=== PATIENT | female | born 1935 | race African-American/Black ===

== ENCOUNTER 2019-04-29 15:48 | Inpatient (IN) ==
--- NOTE | 2019-04-29 17:33 | Diag Imaging Result Doc PS360 ---
EXAM: CT HEAD W/O CONTRAST 04/29/2019 HISTORY: AMS TECHNIQUE: This exam was performed using automated exposure control, adjustment of mA or kV according to patient size, and/or use of iterative reconstruction technique. COMMENT: There are calcifications in the vertebral and internal carotid arteries bilaterally. There is mild generalized cerebral atrophy. There is encephalomalacia in the right parietal cortex. There is no evidence of bleed or abnormal extra-axial fluid collection. No previous studies are available for comparison. 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 No evidence of acute disease. Electronically signed by Jamey Austin 04/29/2019 5:30 PM
--- NOTE | 2019-04-29 17:41 | Diag Imaging Result Doc PS360 ---
EXAM: CHEST-1 VIEW 04/29/2019 HISTORY: SOB, pne? TECHNIQUE: AP chest at 1730 COMMENT: The heart size appears slightly enlarged. The inspiration is suboptimal however. There are apparent atelectatic changes in both lower lobes which were not present on 12/13/2014. IMPRESSION: Bibasilar atelectasis versus pneumonia. Electronically signed by Jamey Austin 04/29/2019 5:38 PM
[2019-04-29] MEDS ORDERED: ROCEPHIN 1 GM in NS 50 ML IV ONE (18:05)
--- NOTE | 2019-04-29 18:47 | PROVIDER DOCUMENTATION ---
HPI-General Adult - General Stated Complaint: SOB Time Seen by Provider: 04/29/19 16:18 Source: patient Allergies/Adverse Reactions: Patient Allergies Allergy/AdvReac Type Severity Reaction Status Date / Time No Known Allergies Allergy Verified 10/19/15 16:21 Home Medications: Home Medication List Medication Instructions Recorded Confirmed Last Taken Type Hydrocodone/Acetaminophen [[place] 1 each PO Q4H PRN 05/07/14 10/19/15 10/18/15 20:00 History 7.5-325 Tablet] Amlodipine Besylate [Norvasc] 5 mg PO DAILY 10/19/15 10/19/15 10/19/15 09:00 History Aspirin [Aspirin EC] 81 mg PO DAILY 10/19/15 10/19/15 10/19/15 12:00 History Atenolol 100 mg PO DAILY 10/19/15 10/19/15 10/19/15 12:00 History Clopidogrel Bisulfate [Plavix] 75 mg PO DAILY 10/19/15 10/19/15 10/19/15 09:00 History Docusate Sodium [Colace] 100 mg PO BID PRN PRN 10/19/15 10/19/15 Unknown History Gabapentin 400 mg PO PRN PRN 10/19/15 10/19/15 Unknown History Glimepiride 2 mg PO DAILY 10/19/15 10/19/15 10/19/15 06:00 History Insulin Glargine [Lantus] 10 unit SUBQ QA 10/19/15 10/19/15 10/19/15 09:00 History Insulin Glargine [Lantus] 12 unit SUBQ QHS 10/19/15 10/19/15 10/18/15 21:00 History LISINOpril [Prinivil] 10 mg PO DAILY 10/19/15 10/19/15 10/19/15 09:00 History LISINOpril [Prinivil] 20 mg PO QHS 10/19/15 10/19/15 10/18/15 21:00 History Metformin HCl [Metformin HCl ER] 500 mg PO BID 10/19/15 10/19/15 10/19/15 09:00 History Ranitidine HCl [Zantac] 150 mg PO BID 10/19/15 10/19/15 10/19/15 09:00 History Simvastatin [Zocor] 20 mg PO QHS 10/19/15 10/19/15 10/18/15 21:00 History - History of Present Illness -Gen Adult Nature of Presenting Problems: Patient is an 84 yobf who arrived from [facility] via EMS who report that pt was sent due to increasing SOB and AMS. Daughter states pt has been on abx for pneumonia x 4 days and cough/SOB have not improved and pt has become increasingly confused. Also states pt has had a yeast infection "for a while now" and has been complaining of left leg pain today. Review of Systems - Adult - REVIEW OF SYSTEMS - ADULT Constitutional: reports: no symptoms reported Eyes: reports: no symptoms reported Ears, Nose, Mouth & Throat: reports: no symptoms reported Cardiovascular: reports: no symptoms reported. denies: syncope Respiratory: reports: see HPI Gastrointestinal: reports: no symptoms reported Genitourinary: reports: see HPI Musculoskeletal: reports: see HPI (leg pain) Integumentary: reports: no symptoms reported Neurological: reports: see HPI (confusion) Psychiatric: reports: no symptoms reported Endocrine: reports: no symptoms reported Hematologic/Lymphatic: reports: no symptoms reported Allergic/Immunologic: reports: no symptoms reported All Other Systems: Reviewed and Negative Past History - Adult - PAST MEDICAL HISTORY-ADULT Review of Records: reports: Old Records Reviewed, Nursing Assessment Review, Medications Reviewed, Social history reviewed & non-contributory. Major Childhood Illnesses: reports: denies history Cardiovascular: reports: HTN, hyperlipidemia Respiratory: reports: denies history Gastrointestinal: reports: GERD Genitourinary: reports: kidney disease Musculoskeletal: reports: denies history Neurological: reports: CVA Endocrine/Immune: reports: Diabetes Other Conditions: reports: cataract/glaucoma - PRIOR SURGERIES/PROCEDURES Surgical/Procedure History: reports: hysterectomy - IMMUNIZATION STATUS Childhood Immunizations: See Nurse Assessment Flu Vaccine: See Nurse Assessment - FAMILY HISTORY Family History: reviewed, not pertinent - SOCIAL HISTORY Smoking: non-smoker Physical Exam-General - PHYSICAL EXAM-ADULT Initial Vital Signs Reviewed: Yes - CONSTITUTIONAL General Appearance: alert, no apparent distress. negative: lethargic, slow to respond - EYES Eyes: PERRL/EOMI, pink conjunctivae - HEAD, EARS, NOSE, MOUTH & THROAT HENMT: normocephalic/atraumatic, moist mucous membranes - NECK Neck: full range of motion, supple, normal inspection - RESPIRATORY Respiratory: no respiratory distress, rhonchi (diffuse expiratory) - CARDIOVASCULAR Cardiovascular: normal peripheral pulses, regular rate, rhythm, no edema, no gallop, no murmur - GASTROINTESTINAL (ABDOMEN) Abdominal Exam: normal bowel sounds, non tender, soft - MUSCULOSKELETAL Back Exam: normal inspection Extremity: normal inspection, no pedal edema, other (no deformity or swelling noted to left lower leg. No apparent injury,). negative: deformity, erythema - SKIN Integumentary: normal color, warm/dry. negative: cyanosis, diaphoresis, jaund ice, mottled, pallor - NEUROLOGIC Neurologic: grossly normal - PSYCHIATRIC Psych/Mental Status: normal mood/affect, other (pt alert to self and place) Progress - PLAN OF CARE/RESULTS Progress/Plan/Lab Results: Vital Signs - 8 hr 04/29/19 16:57 Temperature 98.2 F Pulse Rate 72 Respiratory Rate 15 Blood Pressure 106/69 O2 Sat by Pulse Oximetry 99 Orders Category Date Time Status Cardiac Monitoring DIRECTED Care 04/29/19 16:35 Active Nursing- Obtain EKG ONCE Care 04/29/19 16:35 Active Saline Loc NOW Care 04/29/19 16:35 Active CHEST-1 VIEW [RAD] Stat Exams 04/29/19 16:[address] HEAD W/O CONTRAST [CT] Stat Exams 04/29/19 16:35 Completed BLOOD CULTURE [BLDCUL] Stat Lab 04/29/19 16:35 Uncollected CBC WITH DIFF [HEME] Stat Lab 04/29/19 16:35 Ordered COMPREHENSIVE METABOLIC PANEL [CHEM] Stat Lab 04/29/19 16:35 Uncollected PRO B-NATRIURETIC PEPTIDE Stat Lab 04/29/19 16:35 Uncollected PROTIME WITH INR [COAG] Stat Lab 04/29/19 16:35 Uncollected PTT [COAG] Stat Lab 04/29/19 16:35 Uncollected TROPONIN T Stat Lab 04/29/19 16:35 Ordered UA NIMS W/REFLEX CULT [URINALYSIS] Stat Lab 04/29/19 16:38 Uncollected CefTRIAXONE [Rocephin] 1 gm Med 04/29/19 18:05 Discontinued 0.9% Sodium Chloride Inj [Ns] 50 ml IV NOW EKG [EKG] Stat Ther 04/29/19 16:35 Ordered Result Diagrams: 04/29/19 19:29 04/29/19 19:29 - REASSESSMENT Reassessment #1 Time Reassessed: 20:10 Status: other (Anemia and renal function stable as compared to prior results.) Reassessment #2 Time Reassessed: 21:50 Status: other (Attempting to contact Dr. Rubio who is unavailable at this time. digital music instructor states md is aware of impending admit.) - EKG 1 Time of EKG reading by physician:: 19:43 EKG Read and Signed by:: Gal Pride EKG Interpretation (*Must complete 3 of following elements*): Abnormal Rate: 88 Rhythm: SR with frequent PVCs ST Wave: normal - XRAY 1 XRAY Study: Chest ([facility] - [address] [facility] [address] [address] [facility] - [address] [place] [address] Department of Imaging Patient: GOLD DOADM Date: 04/29/19#: [id number] : 1935DM Status: PRE ERAcct#: [id number] Age/Sex: 84/FRoom/Bed: Loc: ED Ordering Physician: Marian Arnold Family Physician: Reason for Procedure: SOB, pne? Signed EXAM: CHEST-1 VIEW 04/29/2019 HISTORY: SOB, pne? TECHNIQUE: AP chest at 1730 COMMENT: The heart size appears slightly enlarged. The inspiration is suboptimal however. There are apparent atelectatic changes in both lower lobes which were not present on 12/13/2014. IMPRESSION: Bibasilar atelectasis versus pneumonia. Electronically signed by Jamey Austin 04/29/2019 5:38 PM 04/29/19 [id number] Interpreting Physician: Jamey Austin MD Dictated Date/Time: 04/29/19 1738 cc: Marian Arnold;) - CT/MRI 1 CT Study: Head ([facility] - [address] , [address], [place] [address] [facility] - [address] [place] [address] Department of Imaging Patient: GOLD DOADM Date: 04/19 09/06#: [id number] : 1935DM Status: PRE ERAcct#: [id number] Age/Sex: 84/FRoom/Bed: Loc: ED Ordering Physician: Marian Arnold Family Physician: Reason for Procedure: AMS ____ Signed EXAM: CT HEAD W/O CONTRAST 04/29/2019 HISTORY: AMS TECHNIQUE: This exam was performed using automated exposure control, adjustment of mA or kV according to patient size, and/or use of iterative reconstruction technique. COMMENT: There are calcifications in the vertebral and internal carotid arteries bilaterally. There is mild generalized cerebral atrophy. There is encephalomalacia in the right parietal cortex. There is no evidence of bleed or abnormal extra-axial fluid collection. No previous studies are available for comparison. 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 No evidence of acute disease. Electronically signed by Jamey Austin 04/29/2019 5:30 PM 04/29/19 1730 Interpreting Physician: Jamey Austin MD Dictated Date/Time: 04/29/19 1729 cc: Marian Arnold;) Departure - Departure Date of Disposition Decision: 04/29/19 Time of Disposition Decision: 20:23 DIAGNOSIS: Shortness of breath Pneumonia Qualifiers: Pneumonia type: due to unspecified organism Laterality: unspecified laterality Lung location: unspecified part of lung Qualified Code(s): J18.9 - Pneumonia, unspecified organism Altered mental status Qualifiers: Altered mental status type: unspecified Qualified Code(s): R41.82 - Altered mental status, unspecified Disposition: ADMITTED INPATIENT 09 Certified Medical Emergency: Emergent Condition: Stable Referrals and Follow-Ups: Oswaldo Dotson MD [Primary Care Provider] - - Critical Care Note This patient required my direct & personal management of CC.: No Attestation - Physician/ SÁNCHEZ Attestation Patient care was provided by Advanced Practice Provider:: Yes Advanced Practice Provider:: Marian Arnold Advanced Practice Provider documentation review:: The Mid-level provider documentation, treatment plan and medical decision making was reviewed by the physician who agrees with all treatment and medical decision making by the MLP. The physician spent face to face time with patient:: No Advanced Practice Provider documentation review:: Supervising physician onsite and consulted in the evaluation and care of this patient. The physician did not have a face to face encounter with the patient.
[2019-04-29 20:01] LABS: BASO# 0.03 X1000 (0.0-0.2); BASO% 0.3 % (0.0-0.8); EOS# 0.24 X1000 (0.0-0.7); EOS% 2.4 % (0.0-10.0); HEMATOCRIT 29.3 % (37.0-47.0); HEMOGLOBIN 9.5 g/dL (12.0-16.0); IMM GRAN# 0.02 X1000 (0.0-0.04); IMM GRAN% 0.2 % (0.0-0.5); LYMPH# 1.49 X1000 (1.2-3.4); LYMPH% 14.9 % (20.5-51.1); MCH 27.5 PG (27-31); MCHC 32.4 g/dL (33-37); MCV 84.7 FL (81-99); MONO# 0.55 X1000 (0.11-0.59); MONO% 5.5 % (1.7-9.3); MPV 9.8 FL (7.4-10.4); NEUT# 7.65 X1000 (1.4-6.5); NEUT% 76.7 % (42.2-75.2); PLT 334 X1000 (130-400); RBC 3.46 XMIL (4.2-5.4); RDW 16.9 % (11.5-14.5); WBC 9.98 X1000 (4.8-10.8)
[2019-04-29 20:04] LABS: INR 1.92; PROTIME 22.4 Seconds (11.0-16.0)
[2019-04-29 20:05] LABS: PTT 45.9 Seconds (22.3-41.8)
[2019-04-29 20:20] LABS: AGAP 16; ALB/GLOB RATIO 0.9; ALBUMIN 3.3 g/dL (3.5-5.0); ALKALINE PHOSPHATASE 46 U/L (32-104); BUN 31 mg/dL (8-22); CALCIUM 9.8 mg/dL (8.8-10.2); CHLORIDE 97 mmol/L (98-107); COSMO 280; CREATININE 1.2 mg/dL (0.5-0.9); ESTIMATED GFR 52; GLUCOSE 160 mg/dL (70-104); GOT 12 U/L (10-30); GPT 7 U/L (10-36); POTASSIUM 4.5 mmol/L (3.5-5.1); SODIUM 135 mmol/L (136-145); TCO2 22 mmol/L (25-35); TOTAL BILIRUBIN < 0.15 mg/dL (0.20-1.00); TOTAL PROTEIN 6.8 g/dL (6.3-8.3)
[2019-04-29] MEDS ORDERED: DUONEB (A & A) INH ONE (20:24)
[2019-04-29] MEDS ORDERED: ROCEPHIN ONE (23:07)
[2019-04-29] MEDS ORDERED: NS 50 ML ONE (23:07)
[2019-04-29] MEDS: MAXIPIME 1 GM in NS 50 ML IV SCH (23:15)
--- NOTE | 2019-04-30 | EKG Report ---
Test Performed on : 04/29/2019 7:42:31 PM Test Reason : SOB, AMS Blood Pressure : / mmHG Vent. Rate : 088 BPM Atrial Rate : 088 BPM P-R Int : 172 ms QRS Dur : 062 ms QT Int : 342 ms P-R-T Axes : 046 -02 032 degrees QTc Int : 413 ms Sinus rhythm. with frequent premature ventricular complexes. and fusion complexes Otherwise normal ECG No previous ECGs available Unconfirmed Result
[2019-04-30] MEDS: ZYVOX 600 MG/D5W 600 MG/300 ML IVPB IV SCH ×2 (00:02→13:15)
[2019-04-30 01:04] LABS: URINE SOURCE CLEAN CATCH
[2019-04-30 01:08] LABS: BILIRUBIN URINE NEGATIVE (NEGATIVE); BLOOD URINE NEGATIVE (NEGATIVE); COLOR STRAW; GLUCOSE URINE NEGATIVE (NEGATIVE); KETONE URINE NEGATIVE (NEGATIVE); LEUKOCYTES URINE MODERATE (NEGATIVE); NITRITE URINE NEGATIVE (NEGATIVE); PROTEIN URINE NEGATIVE (NEGATIVE); SP GRAVITY URINE 1.011; TURBIDITY URINE CLEAR (CLEAR); UROBILINOGEN URINE NORMAL (NORMAL)
[2019-04-30 01:10] LABS: UR EPITHELIAL CELLS <10 /HPF (<10); URINE BACTERIA NEGATIVE /HPF; URINE RBC <10 /HPF (<10)
[2019-04-30 01:21] LABS: URINE CASTS NONE SEEN; URINE CRYSTALS NONE SEEN; URINE SMALL ROUND CELLS NONE SEEN; URINE YEAST PRESENT
[2019-04-30] MEDS ORDERED: TYLENOL PO PRN (06:47)
[2019-04-30] MEDS ORDERED: ZOFRAN IV PRN (06:47)
[2019-04-30 07:03] LABS: BASO# 0.02 X1000 (0.0-0.2); BASO% 0.2 % (0.0-0.8); EOS# 0.21 X1000 (0.0-0.7); EOS% 2.5 % (0.0-10.0); HEMOGLOBIN 9.1 g/dL (12.0-16.0); IMM GRAN# 0.02 X1000 (0.0-0.04); IMM GRAN% 0.2 % (0.0-0.5); LYMPH# 1.34 X1000 (1.2-3.4); LYMPH% 15.6 % (20.5-51.1); MCH 27.3 PG (27-31); MCHC 32.5 g/dL (33-37); MCV 84.1 FL (81-99); MONO# 0.53 X1000 (0.11-0.59); MONO% 6.2 % (1.7-9.3); MPV 9.7 FL (7.4-10.4); NEUT# 6.45 X1000 (1.4-6.5); NEUT% 75.3 % (42.2-75.2); PLT 323 X1000 (130-400); RBC 3.33 XMIL (4.2-5.4); RDW 16.8 % (11.5-14.5); WBC 8.57 X1000 (4.8-10.8)
[2019-04-30] MEDS ORDERED: NORCO-5 PO PRN (07:04)
[2019-04-30 07:17] LABS: AGAP 10; ALBUMIN 3.2 g/dL (3.5-5.0); ALKALINE PHOSPHATASE 41 U/L (32-104); BUN 27 mg/dL (8-22); CALCIUM 9.4 mg/dL (8.8-10.2); CHLORIDE 98 mmol/L (98-107); COSMO 272; ESTIMATED GFR > 60; GLUCOSE 146 mg/dL (70-104); GOT 14 U/L (10-30); GPT 7 U/L (10-36); POTASSIUM 4.1 mmol/L (3.5-5.1); SODIUM 132 mmol/L (136-145); TCO2 24 mmol/L (25-35); TOTAL BILIRUBIN < 0.15 mg/dL (0.20-1.00); TOTAL PROTEIN 6.5 g/dL (6.3-8.3)
[2019-04-30] MEDS ORDERED: TESSALON PO PRN (07:25)
[2019-04-30 07:56] LABS: HEMOGLOBIN A1C 7.8 % (4.8-6.0)
--- NOTE | 2019-04-30 08:24 | EKG Report ---
Test Performed on : 04/30/2019 08:10:37 AM Test Reason : SOB, Frequent PVCs Blood Pressure : / mmHG Vent. Rate : 080 BPM Atrial Rate : 080 BPM P-R Int : 174 ms QRS Dur : 066 ms QT Int : 360 ms P-R-T Axes : 055 004 044 degrees QTc Int : 415 ms Sinus rhythm. with frequent premature ventricular complexes. Otherwise normal ECG When compared with ECG of 29-APR-2019 19:42, (Unconfirmed) fusion complexes are no longer present Confirmed by Sylvie SÁNCHEZ, Jose Alfredo Michel ([id number]) on 04/30/2019 8:45:37 AM
[2019-04-30] MEDS: HUMULIN R SUBQ SCH ×4 (08:26→21:28)
[2019-04-30] MEDS: NORVASC PO SCH (10:01)
[2019-04-30] MEDS: DIFLUCAN PO SCH (10:01)
[2019-04-30] MEDS: LASIX PO SCH (10:01)
[2019-04-30] MEDS: XARELTO PO SCH (10:01)
[2019-04-30] MEDS: TENORMIN PO SCH (10:01)
[2019-04-30] MEDS: ZANTAC PO SCH ×2 (10:01→21:09)
[2019-04-30] MEDS: DUONEB (A & A) INH SCH ×4 (11:27→21:44)
[2019-04-30] MEDS: MAXIPIME 1 GM in NS 50 ML IV SCH ×2 (12:42→23:39)
--- NOTE | 2019-04-30 20:51 | Diag Imaging Result Doc PS360 ---
CT THORAX W/O CONTRAST - 04/30/2019 INDICATION: pna COMPARISON: Chest x-ray from 04/29/2019 FINDINGS: There is mild cardiomegaly. There is moderate calcification of the mitral valve annulus. There is scattered calcified vascular disease, including coronary artery disease. There is probably a small gallstone in the gallbladder. There are infiltrates in both lower lobes, right greater than left. There are moderate degenerative changes of the spine. No acute or suspicious bony lesion. IMPRESSION: 1. Cardiomegaly. 2. Bilateral lower lobe infiltrates/edema. 3. Small gallstone in the gallbladder. This exam was performed using automated exposure control, adjustment of mA or kV according to patient size, and/or use of iterative reconstruction technique Electronically signed by Pierre Thornton 04/30/2019 8:49 PM
[2019-04-30] MEDS ORDERED: MYCOSTATIN POWDER TOP PRN (21:00)
[2019-04-30] MEDS ORDERED: MELATONIN PO PRN (21:00)
[2019-04-30] MEDS: ESTRACE VAGINAL CREAM VAG SCH (21:08)
[2019-04-30] MEDS: ZOCOR PO SCH (21:09)
--- NOTE | 2019-04-30 23:10 | HISTORY AND PHYSICAL ---
PRIMARY CARE PROVIDER: Dr. Oswaldo Dotson at [facility]. DATE AND TIME: 04/29/2019 at 2300. CHIEF COMPLAINT: Shortness of breath and altered mental status. HISTORY OF PRESENT ILLNESS: Ms. 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 She does have some partial hemiplegia and hemiparesis noted to her left side. She also has a history of diabetes mellitus, chronic kidney disease, osteoarthritis and hypertension. The patient was reportedly being treated for pneumonia at the [place] [facility]. Looking at her medication administration record, it looks as though she was receiving Levaquin and Rocephin for treatment of this. The patient states she was having worsening shortness of breath, continued productive cough, and weakness, and was reported by her [place] [facility] staff to be altered as well. Upon speaking with the patient and her daughter, who was present at bedside, the patient is alert oriented to person, place, time, and situation. She may have been previously altered, though is not altered at this time. She has reported that she has been feeling more fatigued and weak than normal. Her daughter states that even though she does have some hemiplegia and hemiparesis on her left side from her previous stroke, she is still able to ambulate with a walker, though since she has been diagnosed with pneumonia, she has not been able to get up out of bed. She is reporting a productive cough, though denies any fever, body aches, or chills. She also is reporting that she has been having some dysuria and does have problems with frequent yeast infections and has one at present and is having a lot of vaginal itching. She denies any headache, dizziness, chest pain, abdominal pain, nausea, vomiting, or diarrhea. It was noted in the ER physician's note that the patient had been complaining of left leg pain, though upon questioning the patient about this and asking her daughter if she had been reporting this, they denied her having any new acute extremity pain, especially in the left leg. She does state that she has arthritis and does have pain frequently with this, though this has not changed in nature and has not become worse, and there is not any new pain reported. The patient does take Xarelto for a history of DVT. Upon evaluation in the ER, initial vital signs were: Temperature 98.2 degrees, heart rate 72, respirations 16, blood pressure 106/69, oxygen saturation 98% on nasal cannula at 2 L. The patient was resting on the ER stretcher. She was in no distress on examination. She was reported to be to be disoriented upon arrival, though at the time of my assessment, the patient was alert oriented x4. They did perform a CT of the head without contrast due to her history of stroke, which showed extensive chronic microvascular ischemic change with cortical infarct in the right parietal convexity, but there was no acute disease noted. Chest x-ray performed did show bibasilar atelectasis or pneumonia. The heart size appears to be slightly enlarged as well. She has an acute on chronic kidney disease with a creatinine of 1.2 and a GFR of 52. It looks like her baseline does appear to be 1 to 1.1. Serial troponins were negative, though her proBNP was elevated at 749. The patient denies having any known history of congestive heart failure. Urinalysis obtained via clean catch was positive for moderate leukocytes and 10 to 25 blood cells. It had less than 10 epithelial cells noted, and there was yeast present as well. Given these findings, the patient will be admitted for further treatment and evaluation of her pneumonia with failed outpatient treatment as well as UTI. REVIEW OF SYSTEMS: A 14-point review of systems was conducted with the patient and all were negative except for pertinent positives mentioned in HPI. PAST MEDICAL HISTORY: 1. History of previous CVA. She does have deficits on the left side. The patient does have some partial hemiplegia and hemiparesis. Her daughter tells me she was previously able to ambulate with the assistance of a walker just a couple of weeks ago. 2. Diabetes mellitus. 3. Hypertension. 4. Hyperlipidemia. 5. Gastroesophageal reflux disease. 6. History of DVT on chronic anticoagulation with Xarelto 10 mg daily. 7. Chronic kidney disease. 8. Nephrolithiasis. PAST SURGICAL HISTORY: 1. Back Surgery 2. Hysterectomy. 3. 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 SOCIAL HISTORY: The patient denies any past or present tobacco, alcohol or illicit drug use. She is a current resident at [facility]. Her daughter is present at bedside. The patient up until just a couple of weeks ago did ambulate with the assistance of a walker, though due to some worsening weakness, she has not been able to get up in the past few weeks. FAMILY HISTORY: Positive for the urolithiasis and malignancy. ALLERGIES: Patient has no known allergies. HOME MEDICATIONS: 1. Allopurinol 100 mg tablet p.o. at bedtime. 2. Norvasc 5 mg p.o. daily. 3. Atenolol 100 mg p.o. daily. 4. Pletal 100 mg tablet p.o. b.i.d. 5. Vitamin D2, 50,000 unit capsule p.o. as directed. 6. Estrace vaginal cream 1 application as directed at bedtime. 7. Lasix 40 mg p.o. daily. 8. Glimepiride 2 mg p.o. daily. 9. Rice 5 mg 1 tablet p.o. every 8 hours p.r.n. for pain. 10. Levemir Flex-Touch 25 units subcutaneously daily. 11. Lisinopril 10 mg p.o. daily. 12. Lisinopril 20 mg p.o. at bedtime. 13. Melatonin 10 mg p.o. at bedtime. 14. Metformin extended release 5 mg p.o. b.i.d. 15. Mycostatin powder 1 application topically at bedtime to perineal area for itching. 16. Zantac 150 mg p.o. b.i.d. 17. Xarelto 10 mg p.o. daily. 18. Zocor 20 mg p.o. at bedtime. DIAGNOSTIC DATA/LABORATORY RESULTS: White blood cell count is 9980, hemoglobin 9.5, hematocrit 29.3, platelet count is 334. PT 22.4, INR 1.92, PTT is 45.9. Sodium 135, potassium 4.5, chloride 97, serum bicarb 22, BUN 31, creatinine 1.2 with a GFR of 52, glucose 160, calcium 9.8. Liver function tests within normal limits. CK is 70, troponin less than 0.01. ProBNP is 3459. Urinalysis obtained via clean catch was positive for moderate leukocytes and 10 to 20 white blood cells and yeast, though negative for protein, glucose, ketones, blood, nitrites or bacteria. EKG shows sinus rhythm with frequent premature ventricular complexes and fusion complexes at a rate of 88, with a QTc of 413. CT of the head showed extensive chronic microvascular ischemic change with cortical infarct in the right parietal convexity, though no evidence of acute disease. This is per Radiology. Chest x-ray shows bibasilar atelectasis versus pneumonia. PHYSICAL EXAMINATION: VITAL SIGNS: Temperature 98.2, heart rate 86, respirations 18, blood pressure is 140/79, oxygen saturation is 100% on nasal cannula at 2 L. GENERAL: Ms. Ramirez is a very pleasant 84-year-old female. She is resting in the ER stretcher, in no acute distress. She is awake, alert, and answers questions appropriately. HEENT: Head is atraumatic, normocephalic. Pupils are equal, round, and reactive to light, 3 mm bilaterally and brisk. Oral mucosa was moist. Oropharynx is clear. NECK: Supple. Trachea midline. CARDIOVASCULAR: Patient has S1-S2 present. No murmurs, gallops, or rubs appreciated. She does have a regular rate, though has a slightly irregular rhythm on the bedside monitor, and the patient is having frequent PVCs. The patient is not symptomatic with these at this time. PULMONARY: The patient has symmetrical chest expansion bilaterally. Lung sounds did have expiratory rhonchi noted, though were otherwise clear. ABDOMEN: Soft. Does not appear to be distended, but the patient does have a protuberant abdomen noted. Bowel sounds are present in all 4 quadrants, normoactive. EXTREMITIES: No cyanosis or edema noted. Pulses, motor and sensory were intact in all extremities. The patient does have some partial or decreased sensation on her left side. She also does have some partial paralysis, though is able to move some of her left arm and left leg. Radial pulses were 2+ bilaterally. The pedal pulses were slightly difficult to obtain. They were easily obtained with venous Doppler. INTEGUMENTARY: The patient's skin color is normal for her race and is dry and intact. NEUROLOGICAL: Patient is alert and oriented to person, place, time, and situation. She does have some generalized weakness noted. She does have some previous deficits of a contracted left arm and some partial hemiplegia and hemiparesis on her left side, though she is still able to move her left arm and left leg some. Other than this, there are no other focal neurological deficits noted. ASSESSMENT AND PLAN: 1. Pneumonia. For this, since she is a [place] [facility] resident we will treat her for healthcare- associated pneumonia that has failed outpatient treatment with Levaquin and Rocephin. She has been placed on antibiotics of Zyvox and cefepime IV. Blood cultures and sputum culture have been ordered. We will continue her n scheduled DuoNeb treatments, incentive spirometry, and frequent encouragement to turn, cough and deep breathe. At this time she is not in any respiratory distress. She is maintaining adequate oxygen saturations on nasal cannula at 2 L. We will continue to follow along. 2. Candiduria and urinary tract infection. The patient does have a history of this in the past. She also reports that she has been treated for yeast infection and is still having quite a bit of vaginal itching. For treatment of these, we will continue antibiotic as mentioned above of Maxipime. We have also added on fluconazole oral and will continue her nystatin powder for itching. Urine culture has been placed. We will awaiting those results at this time. 3. Acute on chronic kidney disease. The patient does have a slight elevation in her baseline creatinine which appears to be 1 to 1.1, which is now 1.2. We will continue to monitor this closely. We will avoid nephrotoxic medications and renally dose medicines as necessary. We did hold her lisinopril secondary to this. 4. Diabetes mellitus. We are holding patient's oral diabetic medications given her slight acute kidney injury. We have placed her with pattern fingerstick blood sugars and sliding scale insulin. 5. Hypertension. Will continue her Norvasc. 6. History of cerebrovascular accident with some with some residual left-sided hemiplegia and hemiparesis. The patient is still able to move her left arm and left leg some. Prior to just a couple weeks ago, she was able to ambulate with the assistance of a walker. Though since she has been diagnosed with pneumonia she has has increased generalized weakness, she has not had the strength to be able to ambulate according to her daughter. 7. History of deep venous thrombosis, on chronic anticoagulation with Xarelto. 8. Deep vein thrombosis prophylaxis as described previously with the Xarelto as mentioned above. She has been placed on the medical floor/telemetry. She will have vital signs every 8 hours. We will do strict intake and output and incentive spirometry. She will be on a diabetic diet. We will repeat a CBC and comprehensive metabolic panel in the morning. The patient is reporting a shortness of breath. She did have an elevated proBNP. Given her elevated proBNP and that she was noted to have a heart size that was slightly enlarged on her chest x- ray. We have ordered an echocardiogram to be performed as well. Further orders and recommendations pending hospital course, diagnostic studies, and physician evaluation. Dictated by TIMMY Andrew for Pedro Rubio MD I interviewed and examined this patient with the SCIENTIFIC PROCESS OPERATOR and discussed the treatment plan. This document accurately reflects the history, exam and treatment. cc: Pedro Rubio MD [facility]
--- NOTE | 2019-04-30 23:54 | ECHO REPORT ---
ORDER DATE: 04/30/2019 MEASUREMENTS: Septal thickness 1.3, left ventricular internal diameter in diastole 3.6, posterior wall thickness 1.2, left ventricular internal diameter in systole 2.3, aortic root 3.0, left atrium 4.3. SUMMARY: 1. Technically difficult study due to limited acoustic window quality. 2. Aortic valve is trileaflet and opens normally on 2-dimensional images. Peak gradient across the aortic valve is less than 10 mmHg. Mild mitral annular calcification is demonstrated. There is very mild mitral regurgitation. Tricuspid valve is without evidence of structural abnormality, while pulmonic valve is not well demonstrated. There is moderate tricuspid regurgitation and mild pulmonic insufficiency. Estimated systolic PA pressure by Doppler is approximately 80 mmHg, suggesting severe pulmonary hypertension. Aortic root is normal in size. 3. Normal left ventricular chamber size with mild concentric left hypertrophy is demonstrated. Estimated left ejection fraction appears to be at least 65%. No regional wall motion abnormalities are evident. Doppler suggests grade 1 left ventricular diastolic dysfunction. Left atrium is mildly enlarged. Right atrium and right ventricle are grossly normal in size with grossly preserved right ventricular systolic function. 4. No pericardial effusion. 5. Inferior vena cava not well demonstrated. CONCLUSIONS: 1. Technically difficult study. 2. Mild mitral annular calcification with very mild mitral regurgitation. 3. Moderate tricuspid regurgitation with severe pulmonary hypertension by Doppler. 4. Mild concentric left hypertrophy with estimated left ejection fraction at least 65%. 5. Grade 1 left ventricular diastolic dysfunction. 6. Mild left atrial enlargement. cc: Ady Stovall MD
[2019-05-01] MEDS: ZYVOX 600 MG/D5W 600 MG/300 ML IVPB IV SCH ×3 (00:20→22:48)
[2019-05-01] MEDS: DUONEB (A & A) INH SCH ×4 (03:15→21:58)
[2019-05-01 07:13] LABS: BASO# 0.02 X1000 (0.0-0.2); BASO% 0.3 % (0.0-0.8); EOS# 0.21 X1000 (0.0-0.7); EOS% 2.8 % (0.0-10.0); HEMATOCRIT 26.6 % (37.0-47.0); HEMOGLOBIN 8.7 g/dL (12.0-16.0); LYMPH# 1.26 X1000 (1.2-3.4); LYMPH% 16.9 % (20.5-51.1); MCH 27.6 PG (27-31); MCHC 32.7 g/dL (33-37); MCV 84.4 FL (81-99); MONO# 0.52 X1000 (0.11-0.59); NEUT# 5.44 X1000 (1.4-6.5); PLT 306 X1000 (130-400); RBC 3.15 XMIL (4.2-5.4); RDW 16.9 % (11.5-14.5); WBC 7.45 X1000 (4.8-10.8)
[2019-05-01] MEDS: HUMULIN R SUBQ SCH ×4 (07:15→23:06)
[2019-05-01 07:23] LABS: INR 1.43; PROTIME 17.8 Seconds (11.0-16.0)
[2019-05-01 07:43] LABS: AGAP 9; BUN 23 mg/dL (8-22); CHLORIDE 95 mmol/L (98-107); COSMO 274; ESTIMATED GFR > 60; GLUCOSE 232 mg/dL (70-104); MAGNESIUM 1.4 mg/dL (1.5-2.7); POTASSIUM 4.7 mmol/L (3.5-5.1); SODIUM 131 mmol/L (136-145); TCO2 27 mmol/L (25-35)
[2019-05-01] MEDS: TENORMIN PO SCH (09:51)
[2019-05-01] MEDS: ZANTAC PO SCH ×2 (09:51→22:48)
[2019-05-01] MEDS: DIFLUCAN PO SCH (09:51)
[2019-05-01] MEDS: NORVASC PO SCH (09:51)
[2019-05-01] MEDS: XARELTO PO SCH (09:52)
[2019-05-01] MEDS: LASIX PO SCH (09:52)
[2019-05-01] MEDS: MAXIPIME 1 GM in NS 50 ML IV SCH ×2 (11:02→22:48)
[2019-05-01] MEDS ORDERED: MAGNESIUM SULFATE 2 GM/S.W.I. 2 GM/50 ML IVPB IV ONE (13:56)
[2019-05-01] MEDS: ZOCOR PO SCH (22:48)
[2019-05-01] MEDS: ESTRACE VAGINAL CREAM VAG SCH (23:02)
[2019-05-02] MEDS: DUONEB (A & A) INH SCH ×4 (03:49→21:10)
[2019-05-02 06:36] LABS: BASO# 0.04 X1000 (0.0-0.2); BASO% 0.5 % (0.0-0.8); EOS# 0.22 X1000 (0.0-0.7); EOS% 2.8 % (0.0-10.0); HEMATOCRIT 28.2 % (37.0-47.0); HEMOGLOBIN 9.2 g/dL (12.0-16.0); IMM GRAN# 0.02 X1000 (0.0-0.04); IMM GRAN% 0.3 % (0.0-0.5); LYMPH# 1.27 X1000 (1.2-3.4); LYMPH% 16.3 % (20.5-51.1); MCH 27.5 PG (27-31); MCHC 32.6 g/dL (33-37); MCV 84.4 FL (81-99); MONO# 0.65 X1000 (0.11-0.59); MONO% 8.4 % (1.7-9.3); MPV 9.7 FL (7.4-10.4); NEUT# 5.57 X1000 (1.4-6.5); NEUT% 71.7 % (42.2-75.2); PLT 312 X1000 (130-400); RBC 3.34 XMIL (4.2-5.4); WBC 7.77 X1000 (4.8-10.8)
[2019-05-02] MEDS: HUMULIN R SUBQ SCH ×4 (06:37→22:26)
[2019-05-02 07:48] LABS: AGAP 13; BUN 14 mg/dL (8-22); CALCIUM 8.9 mg/dL (8.8-10.2); CHLORIDE 97 mmol/L (98-107); COSMO 276; CREATININE 0.9 mg/dL (0.5-0.9); ESTIMATED GFR > 60; GLUCOSE 158 mg/dL (70-104); POTASSIUM 4.8 mmol/L (3.5-5.1); SODIUM 136 mmol/L (136-145); TCO2 26 mmol/L (25-35)
[2019-05-02] MEDS: LASIX PO SCH (10:35)
[2019-05-02] MEDS: DIFLUCAN PO SCH (10:35)
[2019-05-02] MEDS: TENORMIN PO SCH (10:35)
[2019-05-02] MEDS: NORVASC PO SCH (10:35)
[2019-05-02] MEDS: ZANTAC PO SCH ×2 (10:35→20:00)
[2019-05-02] MEDS: MAXIPIME 1 GM in NS 50 ML IV SCH ×2 (10:35→22:26)
[2019-05-02] MEDS: XARELTO PO SCH (10:35)
[2019-05-02] MEDS: ZYVOX 600 MG/D5W 600 MG/300 ML IVPB IV SCH ×2 (11:10→23:16)
--- NOTE | 2019-05-02 13:17 | PROGRESS NOTE ---
DATE: 05/02/2019 SUBJECTIVE: Patient reports feeling fine. Denies any fever or chills. OBJECTIVE: Vital Signs: Temperature 98.3 degrees, heart rate 73, respiratory rate 22, blood pressure 149/85, O2 saturation 100% 3 L nasal cannula. General: This is an 84-year-old female lying in bed, in no acute distress. Cardiovascular: S1, S2 heard. No murmurs, gallops or rubs. Regular rate and rhythm. Respiratory: Minimal coarse breath sounds noted in both pulmonary bases. Patient not using any accessory muscles or having work of breathing. Abdomen: Soft, nontender to palpation. Bowel sounds present. No organomegaly. Extremities: No clubbing or edema. Peripheral pulses present in both legs. Neurological: Patient alert and oriented x3. Moves 4 extremities. LABORATORY DATA: Reviewed. ASSESSMENT AND PLAN: 1. Healthcare-associated pneumonia. We will continue current treatment, Zyvox and cefepime. Patient is doing fine. No fever. White cell count is normal. We will continue to monitor. 2. Acute on chronic kidney disease. Creatinine at baseline. We will continue to monitor BMP daily. 3. Diabetes mellitus type 2. We will continue with sliding scale insulin. Accu-Chek before meals and also at bedtime. 4. Hypertension. Patient is on home medications. Blood pressure is under control. 5. History of CVA, aware. We will continue with physical therapy. cc: Kem Hayes MD
[2019-05-02] MEDS: ESTRACE VAGINAL CREAM VAG SCH (20:00)
[2019-05-02] MEDS: ZOCOR PO SCH (20:00)
[2019-05-03] MEDS: DUONEB (A & A) INH SCH ×4 (03:46→21:25)
[2019-05-03] MEDS: HUMULIN R SUBQ SCH ×4 (07:09→23:27)
[2019-05-03 07:37] LABS: BASO# 0.03 X1000 (0.0-0.2); BASO% 0.4 % (0.0-0.8); EOS# 0.28 X1000 (0.0-0.7); EOS% 3.4 % (0.0-10.0); HEMATOCRIT 30.1 % (37.0-47.0); HEMOGLOBIN 9.8 g/dL (12.0-16.0); LYMPH% 15.7 % (20.5-51.1); MCH 27.8 PG (27-31); MCHC 32.6 g/dL (33-37); MCV 85.5 FL (81-99); MONO# 0.57 X1000 (0.11-0.59); MONO% 6.9 % (1.7-9.3); MPV 10.5 FL (7.4-10.4); NEUT# 6.11 X1000 (1.4-6.5); NEUT% 73.6 % (42.2-75.2); PLT 327 X1000 (130-400); RBC 3.52 XMIL (4.2-5.4); RDW 17.3 % (11.5-14.5); WBC 8.29 X1000 (4.8-10.8)
[2019-05-03 07:45] LABS: AGAP 14; BUN 13 mg/dL (8-22); CALCIUM 8.4 mg/dL (8.8-10.2); CHLORIDE 96 mmol/L (98-107); SODIUM 136 mmol/L (136-145); TCO2 26 mmol/L (25-35)
[2019-05-03 08:15] LABS: CREATININE 0.9 mg/dL (0.5-0.9); ESTIMATED GFR > 60; GLUCOSE 153 mg/dL (70-104)
[2019-05-03 08:22] LABS: COSMO 275
[2019-05-03] MEDS: DIFLUCAN PO SCH (08:41)
[2019-05-03] MEDS: XARELTO PO SCH (08:41)
[2019-05-03] MEDS: TENORMIN PO SCH (08:41)
[2019-05-03] MEDS: LASIX PO SCH (08:41)
[2019-05-03] MEDS: ZANTAC PO SCH ×2 (08:41→23:24)
[2019-05-03] MEDS: NORVASC PO SCH (08:42)
--- NOTE | 2019-05-03 10:59 | PROGRESS NOTE ---
DATE: 05/03/2019 SUBJECTIVE: Patient reports having some abdominal discomfort. She was not able to move her bowels for the last few days. Denies any fever or chills. Denies any cough. OBJECTIVE: Vital Signs: Temperature 97.7 degrees, heart rate 70, respiratory rate 17, blood pressure 145/52, O2 saturation 99% on room air. OBJECTIVE: General: This is a chronically ill-appearing 84-year-old female lying in bed, in no acute distress. Cardiovascular: S1 and S2 heard. No murmurs, gallops, or rubs. Regular rate and rhythm. Respiratory: Coarse breath sounds noted in both pulmonary bases. Patient not using any accessory muscles or having work of breathing. Abdomen: Soft, nontender to palpation. Bowel sounds present. No organomegaly. Extremities: No clubbing, cyanosis, or edema. Peripheral pulses present in both legs. Neurological: The patient has residual left hemiparesis from old stroke. Speech is coherent. Cranial nerves 2-12 grossly normal. LABORATORY DATA: Reviewed. ASSESSMENT AND PLAN: 1. Healthcare-associated pneumonia. We will continue with Zyvox and cefepime. Clinically, this patient is doing fine. So, we will continue with the same management. White cell count is back to normal. Patient is not spiking any fever. 2. Acute on chronic kidney disease stage 2. Creatinine at baseline. We will continue to monitor BMP. 3. Diabetes mellitus type 2. We will continue with sliding scale insulin. Accu-Chek before meals and also at bedtime. 4. Hypertension. Blood pressure is under control. We will continue home medications. 5. History of cerebrovascular accident. Aware. We have noticed left hemiplegia. We will continue to monitor. 6. Constipation. We will provide MiraLAX and Colace for this patient. cc: Kem Hayes MD
[2019-05-03] MEDS: COLACE PO SCH (12:24)
[2019-05-03] MEDS: MAXIPIME 1 GM in NS 50 ML IV SCH ×2 (12:24→23:24)
[2019-05-03] MEDS: MIRALAX PO SCH ×2 (12:24→23:24)
[2019-05-03] MEDS: ZYVOX 600 MG/D5W 600 MG/300 ML IVPB IV SCH (13:07)
[2019-05-03] MEDS: ZOCOR PO SCH (23:25)
[2019-05-03] MEDS: ESTRACE VAGINAL CREAM VAG SCH (23:25)
[2019-05-04] MEDS: ZYVOX 600 MG/D5W 600 MG/300 ML IVPB IV SCH (00:40)
[2019-05-04] MEDS: DUONEB (A & A) INH SCH ×3 (03:25→14:59)
--- NOTE | 2019-05-04 05:52 | PROGRESS NOTE ---
DATE: 05/01/2019 SUBJECTIVE: The patient reports breathing better. Denies any fever or chills. OBJECTIVE: Vital Signs: Temperature 98.2 degrees, heart rate 71, respiratory rate 16, blood pressure 145/50, O2 saturation 100% on 3 L nasal cannula. General: This is a chronically ill- appearing, 84-year-old, -[place] female, lying in bed, in no acute distress. Cardiovascular: S1, S2 heard. No murmurs, gallops, or rubs. Regular rate and rhythm. Respiratory: Some coarse breath sounds. Rhonchi is noted in both pulmonary bases. Patient is not using any accessory muscles or having work of breathing. Abdomen: Soft, nontender to palpation. Bowel sounds present. No organomegaly. Extremities: No clubbing, cyanosis, or edema. Peripheral pulses present in both legs. Neurological: Patient is alert and oriented x3. Moves 4 extremities. LABORATORY DATA: White cell count 7.45, hemoglobin 8.7, hematocrit 26.6, platelets 306,000. Sodium 131, potassium 4.7, creatinine 1.0, glucose 232, magnesium 1.4. ASSESSMENT AND PLAN: 1. Healthcare-associated bilateral pneumonia. Patient is on Zyvox and cefepime. White cell count is normal. Patient is not spiking any fever. So at this point, we will continue with the same management. The patient is also receiving breathing treatments every 6 hours as scheduled. Will continue with same management. 2. Candiduria urinary tract infection. Patient is not symptomatic. At this point, we are not going to continue with any antifungal medication at this time. 3. Acute on chronic kidney disease. Actually, creatinine is mildly elevated, so we will continue to monitor. 4. Diabetes mellitus type 2. We will continue with sliding scale insulin and Accu-Chek before meals and also at bedtime. 5. Hypertension. Blood pressure is under control. We will continue with amlodipine. 6. History of cerebrovascular accident with some left-sided hemiplegia and hemiparesis. Aware. 7. Deep vein thrombosis prophylaxis. The patient is already on Xarelto. 8. Disposition. We will continue to monitor this patient closely. I am planning to keep her over the weekend, and on Saturday, if she is feeling better, will let her go. cc: Kem Hayes MD
[2019-05-04] MEDS: HUMULIN R SUBQ SCH ×2 (06:55→13:13)
[2019-05-04 07:24] LABS: BASO# 0.02 X1000 (0.0-0.2); BASO% 0.3 % (0.0-0.8); EOS# 0.22 X1000 (0.0-0.7); EOS% 2.9 % (0.0-10.0); HEMOGLOBIN 9.8 g/dL (12.0-16.0); LYMPH# 1.15 X1000 (1.2-3.4); LYMPH% 15.2 % (20.5-51.1); MCH 27.7 PG (27-31); MCHC 32.7 g/dL (33-37); MCV 84.7 FL (81-99); MONO# 0.45 X1000 (0.11-0.59); MONO% 5.9 % (1.7-9.3); MPV 10.3 FL (7.4-10.4); NEUT# 5.74 X1000 (1.4-6.5); NEUT% 75.7 % (42.2-75.2); PLT 337 X1000 (130-400); RBC 3.54 XMIL (4.2-5.4); WBC 7.58 X1000 (4.8-10.8)
[2019-05-04 07:27] LABS: AGAP 12; BUN 14 mg/dL (8-22); CALCIUM 8.7 mg/dL (8.8-10.2); CHLORIDE 95 mmol/L (98-107); COSMO 271; ESTIMATED GFR > 60; GLUCOSE 173 mg/dL (70-104); POTASSIUM 4.5 mmol/L (3.5-5.1); SODIUM 133 mmol/L (136-145); TCO2 26 mmol/L (25-35)
[2019-05-04 07:41] VITALS: BP 133/52
[2019-05-04] MEDS: XARELTO PO SCH (12:21)
[2019-05-04] MEDS: ZANTAC PO SCH (12:21)
[2019-05-04] MEDS: MIRALAX PO SCH (12:21)
[2019-05-04] MEDS: TENORMIN PO SCH (12:22)
[2019-05-04] MEDS: COLACE PO SCH (12:22)
[2019-05-04] MEDS: DIFLUCAN PO SCH (12:22)
[2019-05-04] MEDS: NORVASC PO SCH (12:22)
[2019-05-04] MEDS: LASIX PO SCH (12:22)
--- NOTE | 2019-05-04 12:51 | DISCHARGE SUMMARY ---
ADMISSION DATE: 04/30/2019 DISCHARGE DATE: 05/04/2019 CONSULTATIONS: None. PERTINENT PROCEDURES: Head CT: Extensive chronic microvascular ischemic change with cortical infarct in the right parietal convexity. No evidence of acute disease. Chest CT: Cardiomegaly, bilateral lower lobe infiltrates, edema, small gallstone in the gallbladder. DISCHARGE DIAGNOSES: 1. Healthcare-associated pneumonia. The patient has been on Zyvox and cefepime, and will be discharged on doxycycline and cefuroxime. 2. Acute on chronic kidney disease stage 2, at baseline. 3. Diabetes mellitus type 2. Continue with home medications. 4. Hypertension, stable. Continue with home regimen. 5. History of cerebrovascular accident. Aware. The patient does have left hemiplegia. 6. Constipation, improved. Continue with bowel regimen. HOSPITAL COURSE: Briefly, Ms. Ramirez is an 84-year-old, -[place] female who carries a past medical history of CVA which has affected her left side, diabetes mellitus, chronic kidney disease stage 2, osteoarthritis, and hypertension. The patient was being treated for pneumonia at the alf with Levaquin and Rocephin. She continued to have worsening shortness of breath, a productive cough, and weakness, and felt she was altered so she was brought into the ED where she had a full workup and was admitted for healthcare-associated pneumonia. Started on broad- spectrum antibiotics. Over the course of her hospital stay, she has clinically improved and will be discharged home on p.o. antibiotics. VITAL SIGNS: Temperature is 97.7 degrees, heart rate 67, respirations 18, blood pressure 133/52, O2 is 97% on 2 L nasal cannula. DISCHARGE DIET: Diabetic. DISCHARGE MEDICATIONS: 1. Allopurinol 100 mg tablet p.o. at bedtime. 2. Estrace vaginal cream insert 1 g vaginally every night. 3. Melatonin 3 mg tablet 1 tablet p.o. at bedtime. 4. Nystatin powder, apply topically. 5. Prinivil 20 mg p.o. at bedtime. 6. Zocor 20 mg p.o. at bedtime. 7. Atenolol 100 mg p.o. daily. 8. Cilostazol 1 tablet p.o. b.i.d. 9. Glimepiride 10 mg p.o. daily. 10. Lasix 40 mg p.o. daily. 11. Levemir Flexitouch 25 units subcutaneous daily. 12. Metformin 500 mg p.o. b.i.d. 13. Norvasc 5 mg p.o. daily. 14. Prinivil 10 mg p.o. daily. 15. Tylenol 650 mg p.o. q.8 p.r.n. 16. Vitamin D2 q.7 days. 17. Xarelto 10 mg tablet p.o. daily. 18. Zantac 150 mg p.o. b.i.d. 19. Cefuroxime 500 mg p.o. b.i.d. for 14 tablets. 20. Doxycycline 100 mg p.o. b.i.d. for 14 tablets. 21. MiraLAX 17 g p.o. b.i.d. 22. [place] 5/325 one tablet p.o. q.8 hours p.r.n. FOLLOWUP: Ms. Ramirez is being discharged back to rehab. She can follow up with her primary care provider, Dr. Oswaldo Dotson, in the next 7 to 10 days. She can return to the ED or call 911 for any worsening of symptoms. Dictated by TIMMY Yanez for Kem Hayes MD Addendum: Patient seen and examined by myself. Agree with TIMMY note. It reflects my assessment and plan. Patient is being discharged in stable condition. Will send her back to her alf. cc: MD Oswaldo Garza MD [facility]
[2019-05-04] MEDS ORDERED: GOLYTELY PO ONE (14:18)
== END 2019-05-04 16:25 | DRG 194 ==
LOC: ED 15:48 → SUATTDRO 23:41 → 4N 23:41
PROVIDERS: ATTEND Internal Medicine